=== PATIENT | male | born 1975 | race African-American/Black ===

== ENCOUNTER 2020-06-03 03:27 | Emergency (ER) | payer BC, OTHER ==
[~2020-06-03] VITALS: Ht 175.3 cm; Wt 72.0 kg
[2020-06-03 03:40] VITALS: BP 168/84
--- NOTE | 2020-06-03 03:50 | PHYS DOC ---
Past Medical History Past Medical History: No Pertinent History Past Surgical History: No Surgical History Smoking Status: Current Every Day Smoker Alcohol Use: None Drug Use: None General Adult EDM: Chief Complaint: WRIST PAIN HPI: HPI: Patient is a 45 year old male who presents to the emergency department with left wrist pain. Patient states that yesterday when he woke up his wrist was initially sore but he was able to go to work and work through the pain. When he got home at night the pain was too much and he was unable to use his wrist or hand. He states that it is a burning 10 out of 10 constant pain that is unrelieved by Tylenol or rest. Patient does not recall any trauma to the area and has not noticed any swelling or erythema. Review of Systems: Review of Systems: Review of systems: Constitutional symptoms- No fever, no chills. Eyes- No Discharge, No Visual Loss Respiratory symptoms- No shortness of breath, No wheezing, No Dyspnea on Exertion Cardiovascular Systems; No chest pain, No Palpitations, No syncope Gastrointestinal symptoms: NO abdominal pain, no nausea, no vomiting or diarrhea. Genitourinary symptoms: No dysuria. Musculoskeletal symptoms: No back pain, positive left wrist pain NEUROLOGICAL Symptoms: No headache, no generalized weakness; No focal Weakness Heart Score: C/O Chest Pain: N/A Risk Factors: Risk Factors: DM, Current or recent (<one month) smoker, HTN, HLP, family history of CAD, obesity. Risk Scores: Score 0 - 3: 2.5% MACE over next 6 weeks - Discharge Home Score 4 - 6: 20.3% MACE over next 6 weeks - Admit for Clinical Observation Score 7 - 10: 72.7% MACE over next 6 weeks - Early Invasive Strategies Allergies: Allergies: Allergies Coded Allergies Type Severity Reaction Last Updated Verified No Known Drug Allergies 11/24/13 No Physical Exam: PE: General: alert, no acute distress. Skin: warm, dry and intact. Head:: Normocephalic, atraumatic. Neck: Trachea midline. Eyes: EOMI, Normal conjunctiva, No drainage CARDIOVASCULAR: Regular rate and rhythm, radial pulses intact, good cap refill RESPIRATORY: No respiratory distress Back: Full range of motion. MUSCULOSKELETAL: Full range of motion of bilateral lower extremities, decreased left wrist extension, flexion, abduction, and adduction with passive range of motion, no erythema or ecchymosis wrist. GASTROINTESTINAL: Abdomen soft without rebound or guarding. NEUROLOGICAL: Alert and noted to person, place and time. No neurological deficits observed, okay sign negative. Psychiatric: Cooperative. Normal judgment EKG: EKG: [] Radiology/Procedures: Radiology/Procedures: [] Course & Med Decision Making: Course & Med Decision Making Pertinent Labs and Imaging studies reviewed. (See chart for details) []treated with toradol and ultram. Placed in splint. DC ultram and prednisone [place] Disclaimer: [place]ion Disclaimer: This electronic medical record was generated, in whole or in part, using a voice recognition dictation system. Departure Departure Impression: Primary Impression: Wrist pain, left Disposition: HOME / SELF CARE / HOMELESS Condition: STABLE Referrals: NON,STAFF (PCP) Patient Instructions: Wrist Pain Scripts Tramadol Hcl (ULTRAM) 50 Mg Tablet 1 TAB PO PRN Q6HRS PRN for pain MDD 4 Tablet(s) for 7 Days, #20 TAB 0 Refills Prov: BARBARA LEBRON DO 06/03/20 Prednisone (PREDNISONE) 20 Mg Tablet 1 TAB PO UD for 12 Days, #15 TAB Take 2 tabs days 1,2,3 1.5 tabs days 3,4,5 1 tab days 6,7,8 0.5 tab days 9,10,11 Prov: BARBARA LEBRON DO 06/03/20 BARBARA LEBRON DO Jun 03, 2020 03:50
[2020-06-03] MEDS ORDERED: PRED20TA PO (04:01)
[2020-06-03] MEDS ORDERED: TRAM-48 PO (04:01)
[2020-06-03] MEDS: KETOROLAC 60 MG/2 ML VIAL. IM ONE (04:09)
[2020-06-03] MEDS: traMADol 50 MG TABLET PO ONE (04:17)
== END 2020-06-03 04:17 | disposition home or self-care (01) ==
LOC: ER 03:27
DX: M25.532 Pain in left wrist (principal); R20.8 Other disturbances of skin sensation; F17.200 Nicotine dependence, unspecified, uncomplicated
CPT/HCPCS: 29125; 96372; 99283; J1885